=== PATIENT | female | born 1975 | race Caucasian/White ===

== ENCOUNTER 2017-08-20 08:33 | Emergency (ER) | payer MEDICAID ==
[2017-08-20] MEDS: ALBUTEROL 0.083% (NEB) 2.5 MG/3 ML AMP HHN (09:48)
[2017-08-20] MEDS: DEXAMETHASONE 10 MG/ML 1 ML INJ IM (09:56)
[2017-08-20] MEDS: ACETAMINOPHEN 325 MG TAB PO (09:56)
== END 2017-08-20 11:08 | disposition home or self-care (01) ==
LOC: FTE 08:33
DX: J45.901 Unspecified asthma with (acute) exacerbation (principal)
CPT/HCPCS: 94664; 96372; 99284-25

== ENCOUNTER 2018-01-31 10:46 | Emergency (ER) | payer MEDICAID ==
[2018-01-31] MEDS ORDERED: KETOROLAC 30 MG INJ IV (11:28)
[2018-01-31] MEDS: METHOCARBAMOL 750 MG TAB PO (11:56)
[2018-01-31] MEDS: KETOROLAC 30 MG INJ IM (11:56)
[2018-01-31] MEDS: DEXAMETHASONE 10 MG/ML 1 ML INJ IM (11:56)
== END 2018-01-31 13:03 | disposition home or self-care (01) ==
LOC: FTE 10:46
DX: M54.5 Low back pain (principal); J45.909 Unspecified asthma, uncomplicated
CPT/HCPCS: 81025; 96372; 99284-25

== ENCOUNTER 2018-06-25 18:17 | Emergency (ER) | payer MEDICAID ==
[2018-06-25] MEDS: METHYLPREDNISOLONE 125 MG INJ IM (19:33)
[2018-06-25] MEDS: HYDROCODONE/APAP (5/325) TAB PO (19:34)
[2018-06-25] MEDS: KETOROLAC 60 MG INJ IM (19:45)
[2018-06-25] MEDS: METHOCARBAMOL 750 MG TAB PO (19:46)
== END 2018-06-25 19:51 | disposition home or self-care (01) ==
LOC: FTE 18:17
DX: M54.5 Low back pain (principal); J45.909 Unspecified asthma, uncomplicated
CPT/HCPCS: 81025; 96372; 99284-25

== ENCOUNTER 2018-12-27 14:08 | Inpatient (IN) | payer MEDICAID ==
[2018-12-27 15:46] LABS: WHITE BLOOD COUNT 7.6 10^3/ul (4.8-10.8)
[2018-12-27 15:47] LABS: ABNORMAL IP MESSAGE 1; HEMATOCRIT 20.1 % (37.0-47.0); MEAN CORPUSCULAR HEMOGLOBIN 21.4 pg (29.0-33.0); MEAN CORPUSCULAR HGB CONC 28.4 g/dl (32.0-37.0); MEAN CORPUSCULAR VOLUME 75.6 fl (82.0-101.0); MEAN PLATELET VOLUME 10.3 fl (7.4-10.4); PLATELET COUNT 306 10^3/UL (140-415); RED BLOOD COUNT 2.66 10^6/ul (4.20-5.40); RED CELL DISTRIBUTION WIDTH 16.9 % (11.5-14.5)
[2018-12-27 15:50] LABS: INR 0.93; PROTIME 12.6 Sec (11.9-14.9)
[2018-12-27 15:51] LABS: PARTIAL THROMBOPLASTIN TIME 26.3 Sec (23.0-35.0)
[2018-12-27 15:57] LABS: ALANINE AMINOTRANSFERASE 53 IU/L (13-69); ALBUMIN 4.2 g/dl (3.3-4.9); ALBUMIN/GLOBULIN RATIO 1.05; ALKALINE PHOSPHATASE 63 IU/L (42-121); ANION GAP 7 (5-13); ASPARTATE AMINO TRANSFERASE 41 IU/L (15-46); BILIRUBIN,INDIRECT 0.3 mg/dl (0-1.1); BILIRUBIN,TOTAL 0.3 mg/dl (0.2-1.3); BLOOD UREA NITROGEN 18 mg/dl (7-20); CARBON DIOXIDE 30 mmol/L (21-31); CHLORIDE 102 mmol/L (97-110); CREATININE 0.77 mg/dl (0.44-1.00); Estimated GFR > 60 mL/min (>60); GLUCOSE 109 mg/dl (70-220); POTASSIUM 4.3 mmol/L (3.5-5.1); SODIUM 139 mmol/L (135-144); TOTAL PROTEIN 8.2 g/dl (6.1-8.1)
[2018-12-27 15:58] LABS: POSITIVE DIFF @See below
[2018-12-27 15:59] LABS: HEMOGLOBIN 5.7 g/dl (12.0-16.0)
[2018-12-27 16:00] LABS: ADD MAN DIFF? YES; PATH REVIEW? YES
[2018-12-27] MEDS: PANTOPRAZOLE IV 80 MG in SOD CHLORIDE 0.9% 100 ML IV (16:14)
[2018-12-27] MEDS: PANTOPRAZOLE IV 80 MG in SOD CHLORIDE 0.9% 100 ML IVPB (16:15)
[2018-12-27 16:41] LABS: ANISOCYTOSIS 2+ (0-0); BAND NEUTROPHILS #M 0.3 10^3/ul (0.0-0.6); BAND NEUTROPHILS % (M) 4 % (0-4); EOSINOPHILS % (M) 2 % (0-7); GIANT THROMBO% (M) 1 % (0-0); HYPOCHROMASIA 1+ (0-0); LYMPHOCYTES #M 1.5 10^3/ul (0.8-2.9); LYMPHOCYTES % (M) 21 % (15-51); MICROCYTOSIS 2+ (0-0); MONOCYTE #M 0.5 10^3/ul (0.3-0.9); MONOCYTES % (M) 7 % (0-11); PLATELET ESTIMATE NORMAL; POLYCHROMASIA 2+ (0-0); SEGMENTED NEUTROPHILS (M) % 66 % (39-77); SMUDGE%M 7 % (0-0)
[2018-12-27 17:15] LABS: IMMEDIATE SPIN CROSSMATCH 1 2
[2018-12-27] MEDS ORDERED: morphine 2 MG INJ IV (20:00)
[2018-12-27] MEDS ORDERED: ONDANSETRON 4 MG TAB PO (20:00)
[2018-12-27] MEDS ORDERED: NACL 0.9% 3 ML SYG IV (20:00)
[2018-12-27] MEDS ORDERED: ACETAMINOPHEN 325 MG TAB PO ×2 (20:00)
[2018-12-27] MEDS ORDERED: ONDANSETRON 4 MG INJ IV (20:00)
[2018-12-27] MEDS ORDERED: DOCUSATE SODIUM 100 MG CAP PO (20:00)
[2018-12-27] MEDS ORDERED: BISACODYL (EC) 5 MG TAB PO (20:00)
[2018-12-27] MEDS: IOHEXOL 300MG/ML 150 ML BTL (20:24)
[2018-12-27] MEDS: SOD CHLORIDE 0.9% 100 ML (20:24)
[2018-12-28] MEDS ORDERED: LORAZEPAM 2 MG INJ IV (06:00)
[2018-12-28 06:21] LABS: ADD MAN DIFF? NO
[2018-12-28 06:23] LABS: RETICULOCYTE RBC 3.27
[2018-12-28 06:23] LABS: RETICULOCYTE COUNT % 2.1 % (0.5-1.5)
[2018-12-28 06:25] LABS: BASOPHIL # 0.1 10^3/ul (0.0-0.1); BASOPHILS % 0.9 % (0.0-2.0); EOSINOPHILS # 0.2 10^3/ul (0.0-0.5); EOSINOPHILS % 2.6 % (0.0-7.0); HEMOGLOBIN 7.7 g/dl (12.0-16.0); LYMPHOCYTES # 1.6 10^3/ul (0.8-2.9); LYMPHOCYTES % 23.5 % (15.0-51.0); MEAN CORPUSCULAR HEMOGLOBIN 23.3 pg (29.0-33.0); MEAN CORPUSCULAR HGB CONC 29.6 g/dl (32.0-37.0); MEAN CORPUSCULAR VOLUME 78.5 fl (82.0-101.0); MONOCYTE # 0.5 10^3/ul (0.3-0.9); NEUTROPHIL # 4.6 10^3/ul (1.6-7.5); NEUTROPHILS % 65.7 % (39.0-77.0); PLATELET COUNT 280 10^3/UL (140-415); RED BLOOD COUNT 3.31 10^6/ul (4.20-5.40); RED CELL DISTRIBUTION WIDTH 18.8 % (11.5-14.5)
[2018-12-28 06:45] LABS: IRON 82 ug/dl (35-150)
[2018-12-28 06:49] LABS: ALANINE AMINOTRANSFERASE 57 IU/L (13-69); ALBUMIN 3.7 g/dl (3.3-4.9); ALKALINE PHOSPHATASE 57 IU/L (42-121); ANION GAP 8 (5-13); ASPARTATE AMINO TRANSFERASE 49 IU/L (15-46); BILIRUBIN,INDIRECT 0.8 mg/dl (0-1.1); BILIRUBIN,TOTAL 0.8 mg/dl (0.2-1.3); BLOOD UREA NITROGEN 14 mg/dl (7-20); CALCIUM 8.9 mg/dl (8.4-10.2); CARBON DIOXIDE 28 mmol/L (21-31); CHLORIDE 103 mmol/L (97-110); CHOL/HDL RATIO 4.3 RATIO; CHOLESTEROL 161 mg/dl (100-200); CREATININE 0.77 mg/dl (0.44-1.00); Estimated GFR > 60 mL/min (>60); GLUCOSE 99 mg/dl (70-220); HDL CHOLESTEROL 37 mg/dl (34-88); LDL CHOLESTEROL,CALCULATED 107 mg/dl; MAGNESIUM 2.1 mg/dl (1.7-2.5); POTASSIUM 3.9 mmol/L (3.5-5.1); SODIUM 139 mmol/L (135-144); TOTAL PROTEIN 7.4 g/dl (6.1-8.1); TRIGLYCERIDES 86 mg/dl (0-149)
[2018-12-28 06:54] LABS: % IRON SATURATION 18 % SAT (22-52); TOTAL IRON BINDING CAPACITY 449 ug/dl (241-421)
[2018-12-28 07:07] LABS: LACTATE DEHYDROGENASE 774 IU/L (313-618)
[2018-12-28 07:22] LABS: FERRITIN 5.5 ng/ml (6.2-137.0)
[2018-12-28 07:23] LABS: HEMOGLOBIN A1C 6.2 % (0-5.9)
[2018-12-28 12:17] LABS: OCCULT BLOOD STOOL NEGATIVE (NEGATIVE)
[2018-12-28 19:01] LABS: FREE T4 (FREE THYROXINE) 0.37 ng/dl (0.64-1.79)
[2018-12-29 06:22] LABS: ADD MAN DIFF? NO
[2018-12-29 06:29] LABS: WHITE BLOOD COUNT 7.5 10^3/ul (4.8-10.8)
[2018-12-29 06:29] LABS: BASOPHIL # 0.1 10^3/ul (0.0-0.1); BASOPHILS % 0.7 % (0.0-2.0); EOSINOPHILS # 0.2 10^3/ul (0.0-0.5); EOSINOPHILS % 2.3 % (0.0-7.0); HEMATOCRIT 28.4 % (37.0-47.0); HEMOGLOBIN 8.3 g/dl (12.0-16.0); LYMPHOCYTES # 1.7 10^3/ul (0.8-2.9); LYMPHOCYTES % 22.1 % (15.0-51.0); MEAN CORPUSCULAR HEMOGLOBIN 23.1 pg (29.0-33.0); MEAN CORPUSCULAR HGB CONC 29.2 g/dl (32.0-37.0); MEAN CORPUSCULAR VOLUME 79.1 fl (82.0-101.0); MEAN PLATELET VOLUME 9.8 fl (7.4-10.4); MONOCYTE # 0.6 10^3/ul (0.3-0.9); MONOCYTES % 7.7 % (0.0-11.0); NEUTROPHILS % 66.7 % (39.0-77.0); PLATELET COUNT 267 10^3/UL (140-415); RED BLOOD COUNT 3.59 10^6/ul (4.20-5.40)
[2018-12-29] MEDS: LEVOTHYROXINE 100 MCG TAB PO (06:30)
[2018-12-29 07:06] LABS: ALANINE AMINOTRANSFERASE 51 IU/L (13-69); ALBUMIN/GLOBULIN RATIO 1.11; ALKALINE PHOSPHATASE 61 IU/L (42-121); ANION GAP 8 (5-13); ASPARTATE AMINO TRANSFERASE 34 IU/L (15-46); BILIRUBIN,INDIRECT 0.4 mg/dl (0-1.1); BILIRUBIN,TOTAL 0.4 mg/dl (0.2-1.3); BLOOD UREA NITROGEN 10 mg/dl (7-20); CALCIUM 9.2 mg/dl (8.4-10.2); CARBON DIOXIDE 28 mmol/L (21-31); CHLORIDE 103 mmol/L (97-110); Estimated GFR > 60 mL/min (>60); GLUCOSE 104 mg/dl (70-220); SODIUM 139 mmol/L (135-144); TOTAL PROTEIN 7.6 g/dl (6.1-8.1)
[2018-12-29] MEDS ORDERED: SOD FERRIC GLUC COMPLX 125 MG in SOD CHLORIDE 0.9% 100 ML IVPB (13:00)
[2018-12-31 11:47] LABS: HAPTOGLOBIN 157 mg/dL (43-212)
== END 2018-12-29 13:23 | disposition home or self-care (01) | DRG 812 ==
LOC: E/R 14:08 → TEL 19:37
PROVIDERS: Family Medicine
PROC: 30233N1 Transfusion of Nonautologous Red Blood Cells into Peripheral Vein, Percutaneous Approach (ICD-10-PCS; principal; 2018-12-27)
DX: D50.9 Iron deficiency anemia, unspecified (principal); J45.909 Unspecified asthma, uncomplicated; E66.01 Morbid (severe) obesity due to excess calories; Z68.39 Body mass index [BMI] 39.0-39.9, adult; E03.9 Hypothyroidism, unspecified; R73.03 Prediabetes
CPT/HCPCS: 36415; 36430; 71045; 74178; 74183; 76830; 76856; 80053; 80061; 82270; 82306; 82728; 83010; 83036; 83540; 83615; 83735; 84439; 84443; 84703; 85025; 85045; 85610; 85730; 86850; 86900; 86901; 86920; 99285-25